=== PATIENT | female | born 1975 | race Caucasian/White ===

== ENCOUNTER 2024-12-22 17:38 | Inpatient (IN) | payer MEDICARE, SELFPAY ==
--- NOTE | ~2024-12-22 | CT_ITS ---
EXAMINATION: CT CHEST WITHOUT IV CONTRAST INDICATION: Pneumonia COMPARISON: Correlation is made with PA and lateral views of the chest dated 12/25/2024. TECHNIQUE: Helical CT scan of the chest was performed without intravenous contrast. Coronal and sagittal reformatted images were generated and reviewed. This CT exam was performed with one or more of the following dose reduction techniques: automated exposure control, adjustment of the mA and/or kV according to patient size, use of iterative reconstruction technique. DLP: 211 mGy-cm CHEST: THYROID: The thyroid is unremarkable. LUNGS: There is a small airspace opacity in the lingula compatible with subsegmental atelectasis or possibly early pneumonia. MEDIASTINUM: There is diffuse mediastinal lymphadenopathy. Superior mediastinal lymph nodes measure up to 1.4 cm. Paratracheal nodes measure up to 2.0 cm. AP window lymph nodes measure up to 2.5 cm. There is a 2.4 cm subcarinal lymph node. RUCHI: There is enlargement and a lobulated contour of both hilar regions, highly suggestive of lymphadenopathy. Evaluation is limited by lack of intravenous contrast material. CARDIOVASCULATURE: The heart is normal in size. There is no pericardial effusion. The thoracic aorta is normal in caliber. DEGREE OF CORONARY CALCIFICATION: none PLEURA: There is no pleural effusion. No pneumothorax. MAIN AIRWAYS: The mainstem bronchi and proximal branches are patent. AXILLA: There is no axillary lymphadenopathy. BONES AND SOFT TISSUES: Unremarkable UPPER ABDOMEN: The visualized portions of the liver and adrenals have an unremarkable unenhanced appearance. The spleen is enlarged. CT/CT chest wo IV con IMPRESSION: 1. Airspace opacity in the lingula compatible with subsegmental atelectasis or possibly early pneumonia. 2. Mediastinal and bilateral hilar lymphadenopathy as described. Splenomegaly. Differential diagnostic considerations include lymphoma, sarcoidosis, metastatic disease, and atypical infection. Clinical correlation is recommended. Electronically signed by: Osvaldo Akhtar MD 12/27/2024 07:51 AM EDT
--- NOTE | ~2024-12-22 | XR_ITS ---
EXAMINATION: XR CHEST CLINICAL INFORMATION: Shortness of breath COMPARISON: None available. TECHNIQUE: 2 views of the chest were obtained. FINDINGS: The cardiac, hilar, and mediastinal contours are normal. Lungs demonstrate a patchy opacity abutting the left heart border in the region of the lingula, best appreciated on the PA projection. Lungs are otherwise clear. There is no pneumothorax or pleural effusion. There is no focal osseous or soft tissue abnormality. XR/XR chest 2V IMPRESSION: Patchy opacity in the lingula suspicious for pneumonia. Electronically signed by: Caleb Chapman MD 12/25/2024 01:17 PM EDT
--- NOTE | 2024-12-22 17:45 | ED_ITS ---
HPI - General Adult General Chief complaint: Psychiatric Symptoms Stated complaint: Crisis Time Seen by Provider: 12/22/24 18:43 History of Present Illness HPI narrative: Patient is 49 years old history of crack cocaine use. Last use of a few hours ago. Has been on an off psych meds for years. Feel generally hopeless but not suicidal not homicidal. Came to the ED. Related Data Home Medications ?Medication ?Instructions ?Recorded ?Confirmed No Known Home Meds 12/22/24 12/22/24 Allergies Allergy/AdvReac Type Severity Reaction Status Date / Time No Known Allergies Allergy Verified 12/22/24 17:49 Review of Systems 2 Review of Systems: No chest pain or shortness breath no diaphoresis Yes all other systems are reviewed and are negative [facility] Past Medical History Attestation statement: The following information was validated with the patient. Social History Social History Advance Directives: No Advance Directives Information Provided: No Patient : No Physical Exam ED Exam Exam: Appearance: Alert. Oriented X3. No acute distress. Eyes: Pupils equal, round and reactive to light. ENT: Pharynx normal. Neck: Normal inspection. Neck supple. No lymph nodes noted. No crepitus CVS: Normal heart rate and rhythm. Pulses normal. Normal S1 and S2 Respiratory: No respiratory distress. Breath sounds normal. No Wheezing. No rales Abdomen: Soft and nontender. No rigidity. No distention. good BS x4 Skin: Skin warm and dry. Normal skin color. Normal skin turgor. Extremities: No lower extremity edema. Neurovascular intact to all extremities. No Lacerations. No Rash Neuro: Oriented X 3. No motor deficit. No sensory deficit. Moving all extermities. No slurred speech. Cranial nerves intact Vital Signs: Vital Signs - 24 hr 12/22/24 17:46 Temperature 98.3 F Pulse Rate 117 H Respiratory Rate 20 Blood Pressure 138/93 H Pulse Oximetry 96 Oxygen Delivery Method Room Air BMI result Body Mass Index 24.9 Course Course Course Narrative: RME, this is a rapid medical exam performed by [facility] please refer to primary provider for complete H&P- 49 year old female presents for evaluation of depression with passive SI. She reports being off of her meds. Plan for medical clearance and care team consult Medical Decision Making Medical Decision Making MDM Narrative: 49 years old positive history of crack cocaine use. No SI no HI. Feels very hopeless. Care team had chance evaluate patient. Recommended rest bed. Patient comfortable with that. Currently not suicidal. Will seek help if she had still starts. Patient case consulted by care team. Care team actually spoke with the daughter. When patient is not getting her recreational drugs she becomes more suicidal. Had suicidal tendencies. Does not feel safe that patient is in a rest bed. Patient's case discussed with her. Care team re-evaluate the situation. Will admit patient for inpatient level of care Differential Diagnosis Differential Diagnoses: The differential diagnosis associated with the presentation includes Depression anxiety, polysubstance abuse Admission/Observation Consideration of admission/observation: Escalation of care including admission/observation considered Lab Data [facility] Lab Attestation statement: I reviewed the patient's lab results. 12/22/24 18:33 12/22/24 18:33 Labs: Lab Results 12/22/24 Range/Units 18:33 WBC 6.2 (4.8-10.8) X10*3/uL RBC 4.66 (4.20-5.50) X10*6/uL Hgb 13.8 (12.0-16.0) g/dl Hct 40.1 (37.0-47.0) % MCV 86.1 (80.0-98.0) fL MCH 29.6 (27.0-33.0) pg MCHC 34.4 (31.0-35.0) g/dl RDW 13.6 (11.0-16.0) % Plt Count 285 (160-400) X10*3/uL MPV 10.2 (9.4-12.3) fL Immature Gran % (Auto) 0.5 H (0.0-0.4) % Neut % (Auto) 70.4 (45-73) % Lymph % (Auto) 19.0 L (20-40) % Daggett % (Auto) 8.5 (2-11) % Eos % (Auto) 1.0 (0-4) % Baso % (Auto) 0.6 (0-2) % Lymph # (Auto) 1.2 (1.2-4.9) X10*3/uL Daggett # (Auto) 0.5 (0.1-1.2) X10*3/uL Eos # (Auto) 0.1 (0.0-0.4) X10*3/uL Baso # (Auto) 0.0 (0.0-0.2) X10*3/uL Abs Immat Gran (auto) 0.03 (0.00-0.03) X10*3/uL Absolute Neuts (auto) 4.4 (2.0-8.3) x10*3/uL Absolute Nucleated RBC 0.000 (0.0-0.012) X10*3/uL Nucleated RBC % (auto) 0.0 (0.0-0.2) /100WBC Sodium 143 (135-145) mmol/L Potassium 3.9 (3.3-5.1) mmol/L Chloride 108 (96-108) mmol/L Carbon Dioxide 27 (22-29) mmol/L Anion Gap 12 (12-20) BUN 18 H (9-16) mg/dL Creatinine 0.94 (0.5-1.4) mg/dL Estim Creat Clear Calc 69.2 Estimated GFR > 60 Random Glucose 89 (60-115) mg/dL Calcium 9.8 (8.4-10.2) mg/dL Total Bilirubin 0.3 (0.0-1.0) mg/dL AST 49 H (5-31) U/L ALT 74 H (0-31) U/L Alkaline Phosphatase 88 (39-117) U/L Total Protein 7.8 (6.5-8.0) g/dL Albumin 4.5 (3.5-5.0) g/dL Salicylates < 5.0 L (15-30) mg/dL Acetaminophen < 3 (<30) mcg/mL Ethyl Alcohol < 10 mg/dL Chronic Conditions Polysubstance abuse Social Determinants Patient?s care significantly limited by Social Determinants of Health including: Alcoholism and drug addiction in family, Problems related to primary support group and Unemployment Discharge Plan Discharge Clinical Impression: Depression, Cocaine abuse Instructions: Cocaine Use Disorder (ED), Depression (ED) Additional Instructions: Please go to respite as per care team Prescriptions: No Action No Known Home Meds Interventions: Payette-Suicide Risk Severity Scale Last Done: 12/22/24 18:18 Print Language: Yoruba
[2024-12-22 17:46] VITALS: BP 138/93; PULSE 117; RESP 20; TEMP 36.8; O2SAT 96; BMI 24.9
[2024-12-22 18:53] LABS: MANUAL DIFF FLAG NO
[2024-12-22 19:02] LABS: Hematocrit 40.1 % (37.0-47.0); Hemoglobin 13.8 g/dl (12.0-16.0); Imm Gran Abs Auto 0.03 X10*3/uL (0.00-0.03); Imm Gran Pct Auto 0.5 % (0.0-0.4); Lymphocytes Absolute Auto 1.2 X10*3/uL (1.2-4.9); Mean Corpuscular HGB Conc 34.4 g/dl (31.0-35.0); Mean Corpuscular Hemoglobin 29.6 pg (27.0-33.0); Mean Corpuscular Volume 86.1 fL (80.0-98.0); NRBC Abs Auto 0.000 X10*3/uL (0.0-0.012); NRBC Pct Auto 0.0 /100WBC (0.0-0.2); Platelet Count 285 X10*3/uL (160-400); Red Blood Count 4.66 X10*6/uL (4.20-5.50); White Blood Count 6.2 X10*3/uL (4.8-10.8)
[2024-12-22 19:19] LABS: Acetaminophen LAB < 3 mcg/mL (<30); Alanine Aminotransferase 74 U/L (0-31); Albumin Level 4.5 g/dL (3.5-5.0); Alkaline Phosphatase 88 U/L (39-117); Anion Gap 12 (12-20); Aspartate Amino Transferase 49 U/L (5-31); Blood Urea Nitrogen 18 mg/dL (9-16); Calcium 9.8 mg/dL (8.4-10.2); Carbon Dioxide 27 mmol/L (22-29); Chloride 108 mmol/L (96-108); Creatinine Clr Calc Pharmacy 69.2; Estimated Glomerular Filt Rate > 60; Potassium 3.9 mmol/L (3.3-5.1); Salicylate < 5.0 mg/dL (15-30); Sodium 143 mmol/L (135-145); Total Protein 7.8 g/dL (6.5-8.0)
--- NOTE | 2024-12-22 20:14 | PC.NURSE ---
ASSUMED CARE FOR PT AT APPROXIMATELY 1845. PT HAS BEEN LAYING IN BED SINCE RN ARRIVED. NO APPARENT DISTRESS. NO CONCERNS AT THIS TIME. AWAITING CARE TEAM DISPO.
[2024-12-23 04:13] LABS: UPreg QC Valid YES
[2024-12-23 04:14] LABS: Appearance Urine Clear; Glucose Urine UA Negative (Negative); PH 6.0 (5.0-9.0); Specific Gravity - Urine 1.025 (1.005-1.025); UMIC TRIGGER UACC YES
[2024-12-23 04:16] LABS: UACC Culture Trigger YES
[2024-12-23 04:51] LABS: Cannabinoid Screen Urine Not Detected (Not Detect)
[2024-12-23 06:00] VITALS: BP 131/90; PULSE 102; RESP 20; TEMP 36.9; O2SAT 97
--- NOTE | 2024-12-23 06:06 | PC.NURSE ---
took over at 23:00, pt sleeping at this time.
--- NOTE | 2024-12-23 07:28 | PC.NURSE ---
Assumed care, report received. Pt is currently sleeping, safety is maintained and her breakfast is dropped off in her room.
--- NOTE | 2024-12-23 11:41 | PHA.MEDREC ---
Pharmacy Consult ? Medication Reconciliation Pharmacy has reviewed the medication reconciliation completed by nursing.
--- NOTE | 2024-12-23 14:02 | PC.NURSE ---
Pt remains isolaitive and sleeps most of the shift. she reprots high anxiety after lunch and is provided Ativan with good effect.
[2024-12-23 15:30] VITALS: BP 116/72; PULSE 82; RESP 20; TEMP 37; O2SAT 97
[2024-12-23 20:05] VITALS: BP 112/81; PULSE 88; RESP 16; TEMP 36.8; O2SAT 95
[2024-12-24 06:33] VITALS: RESP 16
--- NOTE | 2024-12-24 07:22 | PC.NURSE ---
Assumed care, report received. Pt wakes for breakfast. she is calm and cooperative. safety maintaiend
[2024-12-24 07:57] VITALS: BP 104/67; PULSE 74; RESP 16; TEMP 36.1; O2SAT 94
--- NOTE | 2024-12-24 09:53 | ECG_ITS ---
Test Reason : R/O PROLONGED QT Blood Pressure : */* mmHG Vent. Rate : 102 BPM Atrial Rate : 102 BPM P-R Int : 120 ms QRS Dur : 72 ms QT Int : 356 ms P-R-T Axes : 76 20 70 degrees QTcB Int : 463 ms Sinus tachycardia Otherwise normal ECG No previous ECGs available Referred By: Jaime Garcia Electronically Signed By: Guerrero Amaral
[2024-12-24 13:04] VITALS: BMI 25.0
[2024-12-24 13:12] VITALS: BP 102/66; PULSE 107; RESP 22; TEMP 36.2; O2SAT 97
[2024-12-24] MEDS: Nicotine 14 MG PATCH.TD24 TRANSDERMA (13:31)
--- NOTE | 2024-12-24 15:28 | PC.ADMIT ---
Addendum entered by Marleen Starkey RN 12/24/24 15:48: Eva is being treated with an antibiotic for a UTI. Original Note: Eva is a 49yr old female admitted (at approx 13:10) to on a CV for increasing depression & vague SI. Brought to [facility] by her daughter, seeking care for her mental health & addiction. She is not on any psych medications & admits to using daily crack cocaine to ?self medicate?. Eva isn?t known to [facility]. She reports having a history of PTSD, Bipolar, manic episodes & denies medical history. Eva is A&Ox4, anxious & tearful, but cooperative, during the admission process. Eva endorses high anxiety & depression but denies current SI/HI/AVH. Eva is from [place] but is now homeless. She came to this area to be near her daughter, stating that she is only able to stay at her daughter?s only short term. Her daughter reported that when Eva is sober or can?t get crack cocaine, she struggles with suicidality. Her skin check is unremarkable. Eva was oriented to the unit & placed on 15min safety checks. She is very anxious, stating that the 2mg PO lorazepam q4hrs she got in the POD isn?t helping.? Eva was shown to her room & has been resting quietly in her bed for approximately two hours.? Will continue to monitor & administer PRN's as appropriate.
[2024-12-24 19:39] VITALS: BP 109/75; PULSE 99; RESP 16; TEMP 36.9; O2SAT 98
[2024-12-25 08:00] VITALS: BP 118/80; PULSE 81; RESP 18; TEMP 35.9; O2SAT 100
[2024-12-25 08:19] LABS: Hemoglobin A1C 151.2540 umol/L; Total Hemoglobin (HGBA1C) 3655.0597 umol/L
--- NOTE | 2024-12-25 08:23 | P.CONHOSP_ITS ---
History of Present Illness Data of Consult Service Date: 12/25/24 Primary Care Provider: None Physician HPI Reason for consult: Medical management 49 year old female with PMH of Cocaine/Crack use, depression presented to ED with passive SI and hopelessness. CBC without leukocytosis, anemia. CMP with no electrolyte imbalances, mild elevation in AST/ALT. No evidence of renal injury. HgA1c 5.9. Patient UA+ was started on Ceftin. No home meds, No PMH. Patient reports a history of an an known thyroid problem as well as an unknown heart or lung problem which was noted approximately 2 years ago in [place], she does not know any details of this. Has not seen a PCP, will need PCP follow up on discharge. TSH WNL. No palpable masses in thyroid, no difficulty swallowing or voice changes. Review of Systems 2 Review of Systems: Denies any shortness of breath, chest pain, dizziness, lightheadedness, abdominal pain or discomfort, nausea vomiting or diarrhea. Denies dysuria PMFSH Social History Household Members: Other Housing: Homeless Housing Other:: can stay w/ daughter short-term Do you presently have visiting nurse or other home services: No Patient Tobacco Use Status: Former Tobacco user e-Cigarette/Vaping Use: Currently Using Frequency of e-Cigarette/Vaping Use: Vapes nicotine daily Patient Interested in Nicotine Replacement: Yes Patient Given Instructions on How to Stop Smoking: No Second Hand Smoke Exposure: No Currently Displaying Signs/Symptoms of Drug Intoxication Withdrawal: No Have you been hit, kicked, punched, or otherwise hurt by someone within the past year? If so, by whom?: No Do you feel safe in your current relationship?: No Current Relationship Is there a partner from a previous relationship who is making you feel unsafe now?: No Are you made to feel afraid or neglected: No Advance Directives: No Advance Directives Information Provided: No Do you have thoughts of harming others: None Do you have a plan to hurt others: No Plan Recently lost weight without trying: No Eating poorly because of decreased appetite: No Nutrition Risks: No Nutritional Risk Patient : No : No Poor oral hygiene: No Meds Allergies Allergy/AdvReac Type Severity Reaction Status Date / Time No Known Allergies Allergy Verified 12/22/24 17:49 Active Medications: Current Medications Acetaminophen (Acetaminophen 325 Mg Tablet) 650 mg PO Q6H PRN PRN Reason: Headache/Pain, Scale 1-10 Al Hydroxide/Mg Hydroxide (Magnesium Hydrox/Alum Hydrox 30 Ml Oral.Susp) 30 ml PO Q6H PRN PRN Reason: Heartburn/Nausea Cefuroxime Axetil (Cefuroxime Axetil 250 Mg Tablet) 250 mg PO BID [facility] Stop: 12/28/24 08:59 Last Admin: 12/24/24 20:33 Dose: 250 mg Hydroxyzine HCl (Hydroxyzine Hcl 25 Mg Tablet) 25 mg PO Q6H PRN PRN Reason: mild anxiety Last Admin: 12/24/24 13:31 Dose: 25 mg Lorazepam (Lorazepam 1 Mg Tablet) 2 mg PO Q4H PRN PRN Reason: Anxiety, agitation Last Admin: 12/24/24 20:33 Dose: 2 mg Magnesium Hydroxide (Milk Of Magnesia 30 Ml Oral.Susp) 30 ml PO DAILY PRN PRN Reason: Constipation Nicotine (Nicotine 14 Mg Patch.Td24) 14 mg TRANSDERMA DAILY [facility] Last Admin: 12/24/24 13:31 Dose: 14 mg Nicotine Polacrilex (Nicotine Polacrilex 2 Mg Gum) 2 mg BUCCAL Q2H PRN PRN Reason: Nicotine Cravings Trazodone HCl (Trazodone Hcl 50 Mg Tablet) 50 mg PO BEDTIME MRX1 PRN PRN Reason: Insomnia Home Medications ?Medication ?Instructions ?Recorded ?Confirmed ?Last Taken ?Type No Known Home Meds 12/22/24 12/22/24 Un known History Physical Exam 2 Vital Signs and Narrative: Vital Signs: Last Vital Signs Temp 96.6 F L 12/25/24 08:00 Pulse 81 12/25/24 08:00 Resp 18 12/25/24 08:00 BP 118/80 12/25/24 08:00 Pulse Ox 100 12/25/24 08:00 O2 Del Method Room Air 12/25/24 08:00 BMI result Body Mass Index 25.0 CONST: Alert and oriented, in NAD. Well nourished HEENT: Normocephalic, atraumatic, MMM, Eyes clear, Neck supple, no palpable masses RESP: Lungs clear, RRR even and regular HEART:,RRR, S1, S2. No edema GI:Abdomen Soft NT, ND. + BS times four :Deferred SKIN: Warm dry and intact, no visible lesions or rashes NEURO:CN II-XII Intact bilaterally, Sensation intact. Speech clear PSYCH: Normal affect Results Labs 12/22/24 18:33 12/25/24 07:28 Labs: Laboratory Results - last 24 hr 12/25/24 07:28 Estimat Average Glucose 123 Hemoglobin A1c % 5.9 Assessment and Plan (1) Cocaine abuse: Status: Acute Plan 49 year old female with PMH of crack cocaine use, PTSD, Bipolar DO and depression presented to ED with Passive SI and help with abstaining from crack cocaine use. She is admitted to inpatient psych for stabilization. Substance use/depression/suicide ideation Treatment per psychiatric team Patient will need follow up as an outpatient for chronic health conditions Thank you for allowing me to participate in the care of this patient. Will follow as needed, please notify medical provider with any changes in condition or concerns.
[2024-12-25] MEDS: Nicotine 14 MG PATCH.TD24 TRANSDERMA (08:27)
[2024-12-25 08:36] LABS: Alanine Aminotransferase 76 U/L (0-31); Albumin Level 4.3 g/dL (3.5-5.0); Alkaline Phosphatase 86 U/L (39-117); Anion Gap 12 (12-20); Aspartate Amino Transferase 46 U/L (5-31); Blood Urea Nitrogen 23 mg/dL (9-16); Calcium 9.7 mg/dL (8.4-10.2); Carbon Dioxide 25 mmol/L (22-29); Chloride 107 mmol/L (96-108); Cholesterol 199 mg/dL (<200); Creatinine Clr Calc Pharmacy 93.0; Estimated Glomerular Filt Rate > 60; HDL Cholesterol 53 mg/dL (>40); Potassium 4.4 mmol/L (3.3-5.1); Sodium 140 mmol/L (135-145); Total Protein 7.5 g/dL (6.5-8.0); Triglycerides 111 mg/dL (<150)
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
[2024-12-25 11:25] VITALS: BP 105/70
[2024-12-25 16:42] VITALS: BP 109/64
[2024-12-25 20:30] VITALS: BP 134/82; PULSE 75; RESP 16; TEMP 36.3; O2SAT 98
[2024-12-25 21:00] VITALS: BP 134/82
[2024-12-26 08:00] VITALS: BP 99/57; PULSE 78; RESP 18; TEMP 36.8; O2SAT 96
[2024-12-26] MEDS: Nicotine 14 MG PATCH.TD24 TRANSDERMA (08:30)
--- NOTE | 2024-12-26 13:01 | HO.PM.IMPN ---
Subjective Subjective Date of Service: 12/26/24 Interval History: Patient was seen and examined follow up chest x-ray. Patient reports that she had a nonspecific lung problem and was supposed to follow up with a pulmonology over a year ago in [place]. She reports that she never followed up. Recent chest x-ray demonstrated patchy opacity the left heart border in the region of the lingula with no pneumothorax or pleural effusion. Possibly suspicious for pneumonia. We will obtain a CT scan due to unclear etiology. Treat empirically with antibiotic therapy, follow up with a repeat chest x-ray in 6 weeks. Review of Systems Denies any shortness of breath, chest pain, dizziness, lightheadedness, abdominal pain or discomfort, nausea vomiting or diarrhea Physical Exam Exam: Exam: CONST: Alert and oriented, in NAD. Well nourished HEENT: Normocephalic, atraumatic, MMM, Eyes clear, Neck supple RESP: Lungs clear, RRR even and regular HEART:,RRR, S1, S2. No murmur, no edema GI:Abdomen Soft NT, ND. + BS times four :Deferred SKIN: Warm dry and intact, no visible lesions or rashes NEURO:CN II-XII Intact bilaterally, Sensation intact. Speech clear PSYCH: Normal affect Vital Signs: Vital Signs: Last Vital Signs Temp 98.2 F 12/26/24 08:00 Pulse 78 12/26/24 08:00 Resp 18 12/26/24 08:00 BP 99/57 L 12/26/24 08:00 Pulse Ox 96 12/26/24 08:00 O2 Del Method Room Air 12/26/24 08:00 BMI result Body Mass Index 25.0 Objective Data Active Medications Acetaminophen (Acetaminophen 325 Mg Tablet) 650 mg PO Q6H PRN PRN Reason: Headache/Pain, Scale 1-10 Al Hydroxide/Mg Hydroxide (Magnesium Hydrox/Alum Hydrox 30 Ml Oral.Susp) 30 ml PO Q6H PRN PRN Reason: Heartburn/Nausea Cefuroxime Axetil (Cefuroxime Axetil 250 Mg Tablet) 250 mg PO BID ROSEMARIE Stop: 12/28/24 08:59 Last Admin: 12/26/24 08:30 Dose: 250 mg Documented By: CLAUDETTE Clonidine HCl (Clonidine Hcl 0.1 Mg Tablet) 0.1 mg PO TID PRN; Protocol PRN Reason: anxiety/W/D symtoms Last Admin: 12/25/24 11:25 Dose: 0.1 mg Documented By: CLAUDETTE Clonidine HCl (Clonidine Hcl 0.1 Mg Tablet) 0.1 mg PO DAILY@0900,1500 [facility]; Protocol Last Admin: 12/26/24 08:38 Dose: Not Given Documented By: CLAUDETTE Non-Admin Reason: Decreased Blood Pressure Hydroxyzine HCl (Hydroxyzine Hcl 50 Mg Tablet) 50 mg PO Q6H PRN PRN Reason: mild anxiety Last Admin: 12/26/24 10:39 Dose: 50 mg Documented By: CLAUDETTE [place] Carbonate ([place] Carbonate Er 300 Mg Tablet.Er) 600 mg PO BEDTIME ROSEMARIE Last Admin: 12/25/24 21:01 Dose: 600 mg Documented By: ROMANA Lorazepam (Lorazepam 1 Mg Tablet) 2 mg PO Q4H PRN PRN Reason: Anxiety, agitation Last Admin: 12/25/24 08:27 Dose: 2 mg Documented By: CLAUDETTE Magnesium Hydroxide (Milk Of Magnesia 30 Ml Oral.Susp) 30 ml PO DAILY PRN PRN Reason: Constipation Nicotine (Nicotine 14 Mg Patch.Td24) 14 mg TRANSDERMA DAILY [facility] Last Admin: 12/26/24 08:30 Dose: 14 mg Documented By: CLAUDETTE Nicotine Polacrilex (Nicotine Polacrilex 2 Mg Gum) 2 mg BUCCAL Q2H PRN PRN Reason: Nicotine Cravings Olanzapine (Olanzapine 5 Mg Tablet) 5 mg PO Q4H PRN PRN Reason: severe anxiety/agitation Last Admin: 12/26/24 08:37 Dose: 5 mg Documented By: CLAUDETTE Prazosin HCl (Prazosin Hcl 1 Mg Capsule) 1 mg PO BEDTIME ROSEMARIE; Protocol Last Admin: 12/25/24 21:00 Dose: 1 mg Documented By: ROMANA Trazodone HCl (Trazodone Hcl 50 Mg Tablet) 50 mg PO BEDTIME PRN PRN Reason: Insomnia Trazodone HCl (Trazodone Hcl 50 Mg Tablet) 50 mg PO BEDTIME ROSEMARIE Last Admin: 12/25/24 21:01 Dose: 50 mg Documented By: ROMANA Labs 12/22/24 18:33 12/25/24 07:28 Labs: Laboratory Results - last 24 hr 12/25/24 07:28 TSH 0.97 Microbiology Microbiology Results: Microbiology 12/23/24 Unknown Urine Culture - Final Urine clean catch - Clean Catch Midstream Klebsiella pneumoniae Escherichia coli Assessment and Plan (1) PNA (pneumonia): Status: Acute Plan 49 year old female with PMH of crack cocaine use, PTSD, Bipolar DO and depression presented to ED with Passive SI and help with abstaining from crack cocaine use. She is admitted to inpatient psych for stabilization. Substance use/depression/suicide ideation Treatment per psychiatric team Patient will need follow up as an outpatient for chronic health conditions PNA Patient with a chest x-ray with patchy opacity in the lingula suspicious for pneumonia, she reported a history of a lung issue which she needed follow up 1-1/2 years ago We will obtain a CT without contrast for further evaluation Treat empirically with antibiotics, we will add doxy as patient is already on a cephalosporin. Repeat Chest Xray in 6 weeks Will need outpatient pulmonology FU. Thank you for allowing me to participate in the care of this patient. Will follow as needed, please notify medical provider with any changes in condition or concerns. Quality Stroke Does the patient have a stroke diagnosis?: No VTE Prior VTE?: No VTE Risk Level:: Medical - low VTE Device Contraindication: Treatment Not Indicated VTE Drug Contraindication: Treatment Not Indicated
[2024-12-26 14:35] VITALS: BP 101/57; PULSE 95; O2SAT 97
--- NOTE | 2024-12-26 14:42 | HO.PSYCHPN ---
Subjective Subjective Date of Service: 12/26/24 Reason For Visit: vague si depression Subjective Notes: Conditional Voluntary Healthcare Proxy: No Guardianship: No Medical Problems Affecting Mental Status: No Interim History: Met with pt and Juana Arboleda LCSW. Pt has made a change of plans and does not want a referral to [facility], but prefers PHP/IOP. Plans to live with her daughter locally. Insurance issues discussed with pt. Family reports pt has several court dates upcoming. Review of medical issues with pt. Hospitalist team working with her-2 antibiotics currently for pneumonia, and two bacterial strains of UTI. Will have chest CAT this afternoon as pt reports hx of nodules found in eval [place] in [place]23 and cardiac issues found as well in [place] in 2023. Pt agrees to addiction medicine eval-looking at options for cravings. Also reports sleep issues. will trial Seroquel for sleep/anxiety sx. Discussed with pt why we will want to avoid lorazepam Medication Compliance: Yes Side effects from medications: No Attending Groups: No Review of Systems as noted Medical Review of Systems: unchanged Review of Systems Review of Systems UTI, Pneumonia Mental Status Exam Mental Status Exam Patient Appearance: Fatigued Patient Orientation: Person, Place, Time and Situation Level of Consciousness: Alert Patient Behavior: Passive and Good Eye Contact Mood Description: Withdrawn Affect Description: Withdrawn Patient Cognition Impaired: No Ability to Follow Directions: Fair Speech Pattern: Spontaneous Speech and Soft-Spoken Memory Description: Episodic Impaired Hallucinations: None Delusions: Not Present Perceptual Disturbances: Depersonalization and Derealization Thought Process: Distracted Thought Content: positive for Circumstantial, positive for Perseveration and positive for Suicidal Ideation (denies) Depressive Symptoms: Increased Anxiety and Thoughts of /Suicide (denies) Judgement: Fair Diagnostics Vital Signs (24Hr): Vital Signs - 24 hr 12/25/24 16:42 12/25/24 20:30 12/25/24 21:00 Temperature 97.3 F Pulse Rate 75 Respiratory Rate 16 Blood Pressure 109/64 134/82 134/82 Pulse Oximetry 98 Oxygen Delivery Method Room Air 12/26/24 08:00 12/26/24 14:35 Temperature 98.2 F Pulse Rate 78 95 Respiratory Rate 18 Blood Pressure 99/57 L 101/57 L Pulse Oximetry 96 97 Oxygen Delivery Method Room Air Room Air BMI result Body Mass Index 25.0 Labs 12/22/24 18:33 12/25/24 07:28 Labs: Laboratory Results - last 48 hr 12/25/24 07:28 Sodium 140 Potassium 4.4 Chloride 107 Carbon Dioxide 25 Anion Gap 12 BUN 23 H Creatinine 0.70 Estim Creat Clear Calc 93.0 Estimated GFR > 60 Random Glucose 96 Estimat Average Glucose 123 Hemoglobin A1c % 5.9 Calcium 9.7 Total Bilirubin 0.3 AST 46 H ALT 76 H Alkaline Phosphatase 86 Total Protein 7.5 Albumin 4.3 Triglycerides 111 Cholesterol 199 LDL Cholesterol, Calc 124 H HDL Cholesterol 53 TSH 0.97 Imaging Radiology Impressions: ITS Impressions Chest X-Ray 12/25/24 12:55 IMPRESSION: Patchy opacity in the lingula suspicious for pneumonia. Electronically signed by: Caleb Chapman MD 12/25/2024 01:17 PM EDT RP Medications Medications Current Medications Acetaminophen (Acetaminophen 325 Mg Tablet) 650 mg PO Q6H PRN PRN Reason: Headache/Pain, Scale 1-10 Al Hydroxide/Mg Hydroxide (Magnesium Hydrox/Alum Hydrox 30 Ml Oral.Susp) 30 ml PO Q6H PRN PRN Reason: Heartburn/Nausea Cefuroxime Axetil (Cefuroxime Axetil 250 Mg Tablet) 250 mg PO BID [facility] Stop: 12/28/24 08:59 Last Admin: 12/26/24 08:30 Dose: 250 mg Clonidine HCl (Clonidine Hcl 0.1 Mg Tablet) 0.1 mg PO TID PRN; Protocol PRN Reason: anxiety/W/D symtoms Last Admin: 12/25/24 11:25 Dose: 0.1 mg Clonidine HCl (Clonidine Hcl 0.1 Mg Tablet) 0.1 mg PO DAILY@0900,1500 [facility]; Protocol Last Admin: 12/26/24 08:38 Dose: Not Given Doxycycline Monohydrate (Doxycycline Monohydrate 100 Mg Capsule) 100 mg PO Q12H [facility] Stop: 12/31/24 12:59 Last Admin: 12/26/24 13:33 Dose: 100 mg Hydroxyzine HCl (Hydroxyzine Hcl 50 Mg Tablet) 50 mg PO Q6H PRN PRN Reason: mild anxiety Last Admin: 12/26/24 10:39 Dose: 50 mg [place] Carbonate ([place] Carbonate Er 300 Mg Tablet.Er) 600 mg PO BEDTIME [facility] Last Admin: 12/25/24 21:01 Dose: 600 mg Lorazepam (Lorazepam 1 Mg Tablet) 2 mg PO Q4H PRN PRN Reason: Anxiety, agitation Last Admin: 12/26/24 13:36 Dose: 2 mg Magnesium Hydroxide (Milk Of Magnesia 30 Ml Oral.Susp) 30 ml PO DAILY PRN PRN Reason: Constipation Nicotine (Nicotine 14 Mg Patch.Td24) 14 mg TRANSDERMA DAILY [facility] Last Admin: 12/26/24 08:30 Dose: 14 mg Nicotine Polacrilex (Nicotine Polacrilex 2 Mg Gum) 2 mg BUCCAL Q2H PRN PRN Reason: Nicotine Cravings Olanzapine (Olanzapine 5 Mg Tablet) 5 mg PO Q4H PRN PRN Reason: severe anxiety/agitation Last Admin: 12/26/24 08:37 Dose: 5 mg Prazosin HCl (Prazosin Hcl 1 Mg Capsule) 1 mg PO BEDTIME [facility]; Protocol Last Admin: 12/25/24 21:00 Dose: 1 mg Trazodone HCl (Trazodone Hcl 50 Mg Tablet) 50 mg PO BEDTIME PRN PRN Reason: Insomnia Trazodone HCl (Trazodone Hcl 50 Mg Tablet) 50 mg PO BEDTIME [facility] Last Admin: 12/25/24 21:01 Dose: 50 mg Allergies Allergies Allergy/AdvReac Type Severity Reaction Status Date / Time No Known Allergies Allergy Verified 12/22/24 17:49 Assessment & Plan Assessment & Plan (1) PNA (pneumonia): Status: Acute Code(s): J18.9 - Pneumonia, unspecified organism (2) Bipolar II disorder: Status: Acute Code(s): F31.81 - Bipolar II disorder (3) PTSD (post-traumatic stress disorder): Status: Acute Code(s): F43.10 - Post-traumatic stress disorder, unspecified (4) Cocaine abuse: Status: Acute Code(s): F14.10 - Cocaine abuse, uncomplicated Plan 49 year old female with PMH of crack cocaine use, PTSD, Bipolar DO and depression presented to ED with Passive SI and help with abstaining from crack cocaine use. She is admitted to inpatient psych for stabilization. Substance use/depression/suicide ideation Treatment per psychiatric team Patient will need follow up as an outpatient for chronic health conditions PNA Patient with a chest x-ray with patchy opacity in the lingula suspicious for pneumonia, she reported a history of a lung issue which she needed follow up 1-1/2 years ago We will obtain a CT without contrast for further evaluation Treat empirically with antibiotics, we will add doxy as patient is already on a cephalosporin. Repeat Chest Xray in 6 weeks Will need outpatient pulmonology FU. Thank you for allowing me to participate in the care of this patient. Will follow as needed, please notify medical provider with any changes in condition or concerns. 12/26: Addiction medicine consult Seroquel 50 mg HS prn sleep/anxiety and 25 mg prn for anxiety Discharge planning- pt considering PHP/IOP vs [facility] Reason for continued inpatient stay Substantial Risk for: rapid decompensation and med/psych decompensation Time Spent With Patient Time: Total time managing care of this patient today ____ minutes.
[2024-12-26 20:00] VITALS: BP 91/54; PULSE 95; RESP 16; TEMP 36.3; O2SAT 96
[2024-12-27 08:14] VITALS: BP 95/51; PULSE 78; TEMP 36.3; O2SAT 96
[2024-12-27] MEDS: Nicotine 14 MG PATCH.TD24 TRANSDERMA (09:37)
[2024-12-27 15:13] VITALS: BP 100/60
--- NOTE | 2024-12-27 15:51 | MHC.RECOVRN ---
TW met with pt in to offer support, resources, and education after consult was placed to Addiction Medicine for? stimulant use. On approach pt was laying in bed with eyes closed. She awoke to name being called and was agreeable to meeting with this aligner typewriter.? Pt reports feeling ?tired? and ?a little irritable?. She is quiet, soft spoken and slightly guarded during interview.? Pt reports smoking approximately 7 grams of crack cocaine daily for the? past 2 years and states that when she is not using, experiences ?panic attacks, I can;t stand myself? and states she has no defence against cravings for crack cocaine.? Pt states her friend ?was given meds for coke and it made her stop craving it? and voiced interest in beginning medication if possible. Case was discussed w/ Suad Resendiz NP and patient was initiated on Topamax 25mg BID.? Pt reports she has been to detox ?about as year ago? at [facility] but denies she has remained abstinent. ?I can do it for maybe a week but then I just give in. I?m super anxious if I don?t smoke?? Pt states the only time she is not using crack cocaine is if she is sleeping.? Pt denies other treatment for stimulant use, and reports she does not have a therapist, psych provider or other recovery support other than her 30 year old daughter with whom she resides with.? Pt shared that she has an extensive family history of mental health and? substance use disorders? on both her maternal and paternal sides. Discussed how substance use has impacted health, including negative impact on mental health and overall physical well being.? Discussed and provided printed education and resources regarding risk and reduction strategies including drug testing at [facility], the importance of proper nutrition and hydration, oral care, not sharing mouth pieces, and using substances with trusted individuals. Pt agreed to start medication to help manage stimulant use cravings and has been initiated on topiramate 25mg PO BID. Pt is also agreeable to a pitching coach and START program referral however, documentation shows she is connected with a pitching coach through the court system and SW is working on potential for PHP/IOP once pt? has established health insurance.? ACS team to work with [facility] to coordinate discharge referrals and will continue to follow.? TW is? available for ongoing support and resources as needed.?
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
[2024-12-27 20:00] VITALS: BP 93/54; PULSE 86; RESP 20; TEMP 37.5; O2SAT 98
[2024-12-27 21:08] VITALS: BP 93/54
[2024-12-28 08:00] VITALS: BP 100/61; PULSE 71; RESP 18; TEMP 36.2; O2SAT 99
[2024-12-28] MEDS: Nicotine 14 MG PATCH.TD24 TRANSDERMA (08:35)
--- NOTE | 2024-12-28 14:23 | HO.ADDICTCON ---
History of Present Illness Date of Service: 12/28/2024 Chief Complaint: vague si depression Sources of Information: patient interviewed and chart reviewed HPI Narrative: Patient is a 49 year old female admitted to unit with worsening depression and passive suicidal ideation. Consult requested as patient reporting ongoing crack cocaine use, impacting life. Patient seen by tax investigator on 12/27 and expressed interest in starting medications for cocaine use. Topomax 25mg BID started. She reported using approx 7 grams crack cocaine daily. Denies any other substance use. Patient seen this morning in follow up to that. She is laying in bed, awake, alert, engaged in interview. Constricted affect. Answered questions regarding medication, dosing, side effects and goals of treatment. Patient inquiring when dose can be increased. Advised that it can be increased over the weekend. Discussed ongoing follow up for [facility]ANG, patient agreeable to [facility] referral. Past Psychiatric History: This is her second [facility] admissions. admission was more than 10 years ago at [place] for SI/Suicide attempt. Hx of many suicide attempts via ODs. No hx of Respite or PHP. Hx of Detox x1 at [facility] in [place] Medication trials: Lamictal and [place]. Medical Evaluation Reviewed: Yes Review of Systems Constitutional: Reports as per HPI and Reports no additional constitutional complaints Diagnostics Vital Signs (24Hr): Vital Signs - 24 hr 12/27/24 15:13 12/27/24 20:00 12/27/24 21:08 Temperature 99.5 F Pulse Rate 86 Respiratory Rate 20 Blood Pressure 100/60 93/54 L 93/54 L Pulse Oximetry 98 Oxygen Delivery Method Room Air 12/28/24 08:00 Temperature 97.2 F Pulse Rate 71 Respiratory Rate 18 Blood Pressure 100/61 Pulse Oximetry 99 Oxygen Delivery Method Room Air BMI result Body Mass Index 25.0 Labs 12/22/24 18:33 12/25/24 07:28 Imaging Radiology Impressions: ITS Impressions Chest X-Ray 12/25/24 12:55 IMPRESSION: Patchy opacity in the lingula suspicious for pneumonia. Electronically signed by: Caleb Chapman MD 12/25/2024 01:17 PM EDT RP Chest CT 12/26/24 21:00 IMPRESSION: 1. Airspace opacity in the lingula compatible with subsegmental atelectasis or possibly early pneumonia. 2. Mediastinal and bilateral hilar lymphadenopathy as described. Splenomegaly. Differential diagnostic considerations include lymphoma, sarcoidosis, metastatic disease, and atypical infection. Clinical correlation is recommended. Electronically signed by: Osvaldo Akhtar MD 12/27/2024 07:51 AM EDT RP Mental Status Exam Mental Status Exam Level of Consciousness: Awake and Alert Patient Behavior: Appropriate, Cooperative and Passive Affect Description: Blunted Speech Pattern: Clear Thought Process: Intact Thought Content: positive for Intact Judgement: Good Medications Medications Current Medications Acetaminophen (Acetaminophen 325 Mg Tablet) 650 mg PO Q6H PRN PRN Reason: Headache/Pain, Scale 1-10 Last Admin: 12/26/24 21:33 Dose: 650 mg Al Hydroxide/Mg Hydroxide (Magnesium Hydrox/Alum Hydrox 30 Ml Oral.Susp) 30 ml PO Q6H PRN PRN Reason: Heartburn/Nausea Clonidine HCl (Clonidine Hcl 0.1 Mg Tablet) 0.1 mg PO TID PRN; Protocol PRN Reason: anxiety/W/D symtoms Last Admin: 12/25/24 11:25 Dose: 0.1 mg Clonidine HCl (Clonidine Hcl 0.1 Mg Tablet) 0.1 mg PO DAILY@0900,1500 [facility]; Protocol Last Admin: 12/28/24 08:41 Dose: 0.1 mg Doxycycline Monohydrate (Doxycycline Monohydrate 100 Mg Capsule) 100 mg PO BID [facility] Stop: 12/31/24 12:59 Last Admin: 12/28/24 08:36 Dose: 100 mg Hydroxyzine HCl (Hydroxyzine Hcl 50 Mg Tablet) 50 mg PO Q6H PRN PRN Reason: mild anxiety Last Admin: 12/28/24 10:33 Dose: 50 mg [place] Carbonate ([place] Carbonate Er 300 Mg Tablet.Er) 600 mg PO BEDTIME [facility] Last Admin: 12/27/24 21:08 Dose: 600 mg Lorazepam (Lorazepam 0.5 Mg Tablet) 0.5 mg PO Q8H PRN PRN Reason: severe anxiety Last Admin: 12/28/24 10:34 Dose: 0.5 mg Magnesium Hydroxide (Milk Of Magnesia 30 Ml Oral.Susp) 30 ml PO DAILY PRN PRN Reason: Constipation Nicotine (Nicotine 14 Mg Patch.Td24) 14 mg TRANSDERMA DAILY [facility] Last Admin: 12/28/24 08:35 Dose: 14 mg Nicotine Polacrilex (Nicotine Polacrilex 2 Mg Gum) 2 mg BUCCAL Q2H PRN PRN Reason: Nicotine Cravings Olanzapine (Olanzapine 5 Mg Tablet) 5 mg PO Q4H PRN PRN Reason: severe anxiety/agitation Last Admin: 12/26/24 08:37 Dose: 5 mg Prazosin HCl (Prazosin Hcl 1 Mg Capsule) 1 mg PO BEDTIME [facility]; Protocol Last Admin: 12/27/24 21:08 Dose: 1 mg Quetiapine Fumarate (Quetiapine Fumarate 50 Mg Tablet) 50 mg PO BEDTIME PRN PRN Reason: sleep, anxiety Quetiapine Fumarate (Quetiapine Fumarate 25 Mg Tablet) 25 mg PO BID PRN PRN Reason: anxiety Last Admin: 12/28/24 12:04 Dose: 25 mg Topiramate (Topiramate 25 Mg Tablet) 25 mg PO BID [facility] Last Admin: 12/28/24 08:36 Dose: 25 mg Trazodone HCl (Trazodone Hcl 50 Mg Tablet) 50 mg PO BEDTIME PRN PRN Reason: Insomnia Trazodone HCl (Trazodone Hcl 50 Mg Tablet) 50 mg PO BEDTIME [facility] Last Admin: 12/27/24 21:09 Dose: 50 mg Allergies Allergies Allergy/AdvReac Type Severity Reaction Status Date / Time No Known Allergies Allergy Verified 12/22/24 17:49 Assessment & Plan Assessment & Plan (1) Cocaine use disorder: Status: Acute Code(s): F14.10 - Cocaine abuse, uncomplicated Assessment and Plan: Continue topomax 25mg BID, if still tolerated by patient, can increase dose to 50mg BID on Wednesday. Would like referral to [facility] to continue treatment for StUD. encourage hydration and nutrition Total time managing care of this patient today __25__ minutes. [facility] Social History Social History Household Members: Other Housing: Homeless Housing Other:: can stay w/ daughter short-term Do you presently have visiting nurse or other home services: No Patient Tobacco Use Status: Former Tobacco user e-Cigarette/Vaping Use: Currently Using Frequency of e-Cigarette/Vaping Use: Vapes nicotine daily Patient Interested in Nicotine Replacement: Yes Patient Given Instructions on How to Stop Smoking: No Second Hand Smoke Exposure: No Currently Displaying Signs/Symptoms of Drug Intoxication Withdrawal: No Have you been hit, kicked, punched, or otherwise hurt by someone within the past year? If so, by whom?: No Do you feel safe in your current relationship?: No Current Relationship Is there a partner from a previous relationship who is making you feel unsafe now?: No Are you made to feel afraid or neglected: No Advance Directives: No Advance Directives Information Provided: No Do you have thoughts of harming others: None Do you have a plan to hurt others: No Plan Recently lost weight without trying: No Eating poorly because of decreased appetite: No Nutrition Risks: No Nutritional Risk Patient : No : No Poor oral hygiene: No service: No Sexual orientation: Straight/Heterosexual
[2024-12-28 15:50] VITALS: BP 94/53; PULSE 88; RESP 18
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
[2024-12-28 20:00] VITALS: BP 91/55; PULSE 91; RESP 18; TEMP 36.1; O2SAT 98
[2024-12-28 21:42] VITALS: BP 91/55
[2024-12-29 07:53] VITALS: PULSE 79; TEMP 36.3; O2SAT 96
--- NOTE | 2024-12-29 08:30 | HO.PM.IMPN ---
Subjective Subjective Date of Service: 12/29/24 Interval History: Follow up abnormal CT scan. Patient reports that she does not have any shortness of breath or chest pain. She continues on antibiotic therapy. CT scan demonstrated mediastinal and bilateral hilar lymphadenopathy.. CT scan also demonstrates an enlarged spleen. Patient reports that she has had biopsies 4 years ago. Attempting to get the record from [facility], per business unit controller reportedly patient was under a different name at a time complicating obtaining records. She feels better, she reports she has been going out into the kitchen more often and in the milieu. Review of Systems Denies any shortness of breath, chest pain, palpitations, dizziness, lightheadedness, headaches, dysuria, abdominal pain or discomfort, nausea, vomiting or diarrhea. Denies Chills, body aches, muscle aches, fatigue or weight loss. Physical Exam Exam: Exam: CONST: Alert and oriented, in NAD. Well nourished HEENT: Normocephalic, atraumatic, MMM, Eyes clear, Neck supple RESP: Lungs clear, RRR even and regular HEART:,RRR, S1, S2. No edema GI:Abdomen Soft NT, ND. + BS times four :Deferred SKIN: Warm dry and intact, no visible lesions or rashes NEURO:CN II-XII Intact bilaterally, Sensation intact. Speech clear PSYCH: Normal affect Vital Signs: Vital Signs: Last Vital Signs Temp 97.4 F 12/29/24 07:53 Pulse 79 12/29/24 07:53 Resp 18 12/28/24 20:00 BP 91/55 L 12/28/24 21:42 Pulse Ox 96 12/29/24 07:53 O2 Del Method Room Air 12/29/24 07:53 BMI result Body Mass Index 25.0 Objective Data Active Medications Acetaminophen (Acetaminophen 325 Mg Tablet) 650 mg PO Q6H PRN PRN Reason: Headache/Pain, Scale 1-10 Last Admin: 12/26/24 21:33 Dose: 650 mg Documented By: ROMANA Al Hydroxide/Mg Hydroxide (Magnesium Hydrox/Alum Hydrox 30 Ml Oral.Susp) 30 ml PO Q6H PRN PRN Reason: Heartburn/Nausea Buspirone HCl (Buspirone Hcl 10 Mg Tablet) 10 mg PO BID [facility] Last Admin: 12/28/24 21:43 Dose: 10 mg Documented By: DENNIS Clonidine HCl (Clonidine Hcl 0.1 Mg Tablet) 0.1 mg PO DAILY@0900,1500 [facility]; Protocol Last Admin: 12/28/24 15:58 Dose: Not Given Documented By: CHATO Non-Admin Reason: Physician Held Med Doxycycline Monohydrate (Doxycycline Monohydrate 100 Mg Capsule) 100 mg PO BID [facility] Stop: 12/31/24 12:59 Last Admin: 12/28/24 21:43 Dose: 100 mg Documented By: DENNIS Hydroxyzine HCl (Hydroxyzine Hcl 50 Mg Tablet) 50 mg PO Q6H PRN PRN Reason: mild anxiety Last Admin: 12/28/24 10:33 Dose: 50 mg Documented By: CHATO Paa-Ko Carbonate (Paa-Ko Carbonate Er 300 Mg Tablet.Er) 600 mg PO BEDTIME [facility] Last Admin: 12/28/24 21:42 Dose: 600 mg Documented By: DENNIS Lorazepam (Lorazepam 0.5 Mg Tablet) 0.5 mg PO Q8H PRN PRN Reason: severe anxiety Last Admin: 12/28/24 10:34 Dose: 0.5 mg Documented By: CHATO Magnesium Hydroxide (Milk Of Magnesia 30 Ml Oral.Susp) 30 ml PO DAILY PRN PRN Reason: Constipation Nicotine (Nicotine 14 Mg Patch.Td24) 14 mg TRANSDERMA DAILY [facility] Last Admin: 12/28/24 08:35 Dose: 14 mg Documented By: CHATO Nicotine Polacrilex (Nicotine Polacrilex 2 Mg Gum) 2 mg BUCCAL Q2H PRN PRN Reason: Nicotine Cravings Olanzapine (Olanzapine 5 Mg Tablet) 5 mg PO Q4H PRN PRN Reason: severe anxiety/agitation Last Admin: 12/28/24 16:13 Dose: 5 mg Documented By: CHATO Prazosin HCl (Prazosin Hcl 1 Mg Capsule) 1 mg PO BEDTIME [facility]; Protocol Last Admin: 12/28/24 21:42 Dose: 1 mg Documented By: DENNIS Quetiapine Fumarate (Quetiapine Fumarate 50 Mg Tablet) 50 mg PO BEDTIME PRN PRN Reason: sleep, anxiety Last Admin: 12/29/24 03:49 Dose: 50 mg Documented By: YURIY Quetiapine Fumarate (Quetiapine Fumarate 25 Mg Tablet) 25 mg PO BID PRN PRN Reason: anxiety Last Admin: 12/28/24 17:29 Dose: 25 mg Documented By: PRISCILA Topiramate (Topiramate 25 Mg Tablet) 25 mg PO BID [facility] Last Admin: 12/28/24 21:43 Dose: 25 mg Documented By: DENNIS Trazodone HCl (Trazodone Hcl 50 Mg Tablet) 50 mg PO BEDTIME PRN PRN Reason: Insomnia Trazodone HCl (Trazodone Hcl 50 Mg Tablet) 50 mg PO BEDTIME [facility] Last Admin: 12/28/24 21:43 Dose: 50 mg Documented By: DENNIS Labs 12/22/24 18:33 12/25/24 07:28 Assessment and Plan (1) PNA (pneumonia): Status: Acute (2) Abnormal chest CT: Status: Acute Plan 49 year old female with PMH of crack cocaine use, PTSD, Bipolar DO and depression presented to ED with Passive SI and help with abstaining from crack cocaine use. She is admitted to inpatient psych for stabilization. Substance use/depression/suicide ideation Treatment per psychiatric team Patient will need follow up as an outpatient for chronic health conditions PNA/abnormal chest x-ray. Patient with a chest x-ray with patchy opacity in the lingula suspicious for pneumonia, she reported a history of a lung issue which she needed follow up 1-1/[address] chest demonstrates mediastinal and bilateral hilar lymphadenopathy as well as splenomegaly. Pulmonology consult Continue antibiotics, we will add doxy as patient is already on a cephalosporin. Repeat Chest Xray in 6 weeks Will need outpatient pulmonology FU. Patient will also need follow up with the primary care regarding incidental finding of splenomegaly Thank you for allowing me to participate in the care of this patient. Will follow as needed, please notify medical provider with any changes in condition or concerns. Quality Stroke Does the patient have a stroke diagnosis?: No VTE Prior VTE?: No VTE Risk Level:: Medical - low VTE Device Contraindication: Treatment Not Indicated VTE Drug Contraindication: Treatment Not Indicated
[2024-12-29] MEDS: Nicotine 14 MG PATCH.TD24 TRANSDERMA (09:20)
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
--- NOTE | 2024-12-29 16:08 | PM.CNPUL ---
History of Present Illness History of Present Illness Consult date: 12/29/24 Chief complaint: vague si depression Narrative: This is an inpatient pulmonary consultation. The pt is a 49 year old female with PMH of Cocaine/Crack use, depression presented to ED with passive SI and hopelessness. CBC without leukocytosis, anemia. CMP with no electrolyte imbalances, mild elevation in AST/ALT. No evidence of renal injury. HgA1c 5.9. Patient UA+ was started on Ceftin. No home meds, No PMH. Patient reports a history of an an known thyroid problem as well as an unknown heart or lung problem which was noted approximately 2 years ago in [place], she does not know any details of this. Has not seen a PCP, will need PCP follow up on discharge. TSH WNL. No palpable masses in thyroid, no difficulty swallowing or voice changes. The patient does have a chest x-ray which was personally by me demonstrating pronounced hilum suggesting lymphadenopathy and also hazy opacity. Therefore she did undergo a CT scan of the chest which was personally by me demonstrating significant both bulky mediastinal hilar lymphadenopathy and some areas of atelectasis suggesting of the opacity with that was noted on x-ray. The patient apparently did have a biopsy in the past. The diagnosis of sarcoid seems familiar to her. Will go ahead and request medical records from the hospital where she had her procedure and biopsy sometime ago. For now clinically the patient is doing well she is going to complete a course of antibiotics and will need outpatient pulmonary follow-up. Review of Systems Review of Systems: Constitutional: Denies fatigue and Denies fever(s) Cardiovascular: Denies chest pain and Denies dyspnea Respiratory: Denies dyspnea Gastrointestinal: Denies abdominal pain Psychiatric: denies suicidal ideation Endocrine: Denies fatigue Yes all other systems are reviewed and are negative [facility] Past Medical History Medical History (Updated 12/29/24 @ 16:11 by Hiar Green MD) Atelectasis Lymphadenopathy, mediastinal Social History Social History Household Members: Other Housing: Homeless Housing Other:: can stay w/ daughter short-term Do you presently have visiting nurse or other home services: No Patient Tobacco Use Status: Former Tobacco user e-Cigarette/Vaping Use: Currently Using Frequency of e-Cigarette/Vaping Use: Vapes nicotine daily Patient Interested in Nicotine Replacement: Yes Patient Given Instructions on How to Stop Smoking: No Second Hand Smoke Exposure: No Currently Displaying Signs/Symptoms of Drug Intoxication Withdrawal: No Have you been hit, kicked, punched, or otherwise hurt by someone within the past year? If so, by whom?: No Do you feel safe in your current relationship?: No Current Relationship Is there a partner from a previous relationship who is making you feel unsafe now?: No Are you made to feel afraid or neglected: No Advance Directives: No Advance Directives Information Provided: No Do you have thoughts of harming others: None Do you have a plan to hurt others: No Plan Recently lost weight without trying: No Eating poorly because of decreased appetite: No Nutrition Risks: No Nutritional Risk Patient : No : No Poor oral hygiene: No service: No Sexual orientation: Straight/Heterosexual Meds Allergies Allergy/AdvReac Type Severity Reaction Status Date / Time No Known Allergies Allergy Verified 12/22/24 17:49 Active Medications: Current Medications Acetaminophen (Acetaminophen 325 Mg Tablet) 650 mg PO Q6H PRN PRN Reason: Headache/Pain, Scale 1-10 Last Admin: 12/26/24 21:33 Dose: 650 mg Al Hydroxide/Mg Hydroxide (Magnesium Hydrox/Alum Hydrox 30 Ml Oral.Susp) 30 ml PO Q6H PRN PRN Reason: Heartburn/Nausea Buspirone HCl (Buspirone Hcl 10 Mg Tablet) 10 mg PO BID [facility] Last Admin: 12/29/24 09:20 Dose: 10 mg Clonidine HCl (Clonidine Hcl 0.1 Mg Tablet) 0.1 mg PO DAILY@0900,1500 [facility]; Protocol Last Admin: 12/29/24 09:54 Dose: 0.1 mg Doxycycline Monohydrate (Doxycycline Monohydrate 100 Mg Capsule) 100 mg PO BID [facility] Stop: 12/31/24 12:59 Last Admin: 12/29/24 09:20 Dose: 100 mg Hydroxyzine HCl (Hydroxyzine Hcl 50 Mg Tablet) 50 mg PO Q6H PRN PRN Reason: mild anxiety Last Admin: 12/29/24 11:12 Dose: 50 mg [place] Carbonate ([place] Carbonate Er 300 Mg Tablet.Er) 600 mg PO BEDTIME [facility] Last Admin: 12/28/24 21:42 Dose: 600 mg Lorazepam (Lorazepam 0.5 Mg Tablet) 0.5 mg PO Q8H PRN PRN Reason: severe anxiety Last Admin: 12/29/24 09:20 Dose: 0.5 mg Magnesium Hydroxide (Milk Of Magnesia 30 Ml Oral.Susp) 30 ml PO DAILY PRN PRN Reason: Constipation Nicotine (Nicotine 14 Mg Patch.Td24) 14 mg TRANSDERMA DAILY [facility] Last Admin: 12/29/24 09:20 Dose: 14 mg Nicotine Polacrilex (Nicotine Polacrilex 2 Mg Gum) 2 mg BUCCAL Q2H PRN PRN Reason: Nicotine Cravings Olanzapine (Olanzapine 5 Mg Tablet) 5 mg PO Q4H PRN PRN Reason: severe anxiety/agitation Last Admin: 12/29/24 11:12 Dose: 5 mg Olanzapine (Olanzapine 5 Mg Tablet) 5 mg PO BID [facility] Prazosin HCl (Prazosin Hcl 1 Mg Capsule) 1 mg PO BEDTIME [facility]; Protocol Last Admin: 12/28/24 21:42 Dose: 1 mg Quetiapine Fumarate (Quetiapine Fumarate 50 Mg Tablet) 50 mg PO BEDTIME PRN PRN Reason: sleep, anxiety Last Admin: 12/29/24 03:49 Dose: 50 mg Quetiapine Fumarate (Quetiapine Fumarate 25 Mg Tablet) 25 mg PO BID PRN PRN Reason: anxiety Last Admin: 12/29/24 11:12 Dose: 25 mg Topiramate (Topiramate 25 Mg Tablet) 25 mg PO BID [facility] Last Admin: 12/29/24 09:20 Dose: 25 mg Trazodone HCl (Trazodone Hcl 50 Mg Tablet) 50 mg PO BEDTIME PRN PRN Reason: Insomnia Trazodone HCl (Trazodone Hcl 50 Mg Tablet) 50 mg PO BEDTIME [facility] Last Admin: 12/28/24 21:43 Dose: 50 mg Home Medications ?Medication ?Instructions ?Recorded ?Confirmed ?Last Taken ?Type No Known Home Meds 12/22/24 12/22/24 Unknown History Physical Exam Exam: Exam: CONST: Alert and oriented, in NAD. Well nourished HEENT: Normocephalic, atraumatic, MMM, Eyes clear, Neck supple RESP: Lungs clear, RRR even and regular HEART:,RRR, S1, S2. No edema GI:Abdomen Soft NT, ND. + BS times four :Deferred SKIN: Warm dry and intact, no visible lesions or rashes NEURO:CN II-XII Intact bilaterally, Sensation intact. Speech clear PSYCH: Normal affect Vital Signs: Vital Signs: Last Vital Signs Temp 97.4 F 12/29/24 07:53 Pulse 79 12/29/24 07:53 Resp 18 12/28/24 20:00 BP 91/55 L 12/28/24 21:42 Pulse Ox 96 12/29/24 07:53 O2 Del Method Room Air 12/29/24 07:53 BMI result Body Mass Index 25.0 Results Laboratory Findings 12/22/24 18:33 12/25/24 07:28 Abnormal lab findings: Abnormal Labs 12/22/24 12/23/24 12/25/24 18:33 04:05 07:28 Immature Gran % (Auto) 0.5 H Lymph % (Auto) 19.0 L BUN 18 H 23 H AST 49 H 46 H ALT 74 H 76 H LDL Cholesterol, Calc 124 H Urine Nitrite Positive H Ur Leukocyte Esterase Moderate (2+) H Urine WBC >50 H Salicylates < 5.0 L U Benzodiazepines Scrn POSITIVE H Urine Cocaine Screen POSITIVE H Microbiology: Microbiology 12/23/24 Unknown Urine clean catch - Clean Catch Midstream Urine Culture - Final Klebsiella pneumoniae Escherichia coli Assessment and Plan (1) Lymphadenopathy, mediastinal: Status: Acute (2) Atelectasis: Status: Acute (3) PNA (pneumonia): Status: Acute Plan Complete antibiotics Requesting records from previous lung biopsy Will follow-up as an outpatient in our Pulmonary office Further recommendation based on forthcoming data Procedures Date of Service Date of Service: 12/29/24
[2024-12-29 20:00] VITALS: BP 101/59; PULSE 91; RESP 16; TEMP 36.2; O2SAT 98
[2024-12-29 20:44] VITALS: BP 101/59
[2024-12-30 08:00] VITALS: BP 125/65; PULSE 90; TEMP 35.8; O2SAT 100
[2024-12-30 08:26] LABS: Lithium 0.64 mmol/L (0.60-1.20)
[2024-12-30] MEDS: Nicotine 14 MG PATCH.TD24 TRANSDERMA (13:12)
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
[2024-12-30 19:37] VITALS: BP 102/64; PULSE 97; RESP 16; TEMP 35.7; O2SAT 97
[2024-12-31 09:20] VITALS: BP 109/75; PULSE 100; TEMP 36; O2SAT 98
[2024-12-31] MEDS: Nicotine 14 MG PATCH.TD24 TRANSDERMA (09:28)
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
[2024-12-31 19:36] VITALS: BP 117/73; PULSE 117; RESP 15; TEMP 36.5; O2SAT 96
[2025-01-01 08:00] VITALS: BP 99/55; PULSE 83; RESP 16; TEMP 36.9; O2SAT 98
[2025-01-01] MEDS: Nicotine 14 MG PATCH.TD24 TRANSDERMA (09:34)
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
[2025-01-01 19:57] VITALS: BP 122/75; PULSE 108; RESP 18; TEMP 37.1; O2SAT 98
[2025-01-02 08:00] VITALS: BP 116/76; PULSE 90; TEMP 36.1; O2SAT 98
[2025-01-02] MEDS: Nicotine 14 MG PATCH.TD24 TRANSDERMA (09:10)
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
[2025-01-02 20:00] VITALS: BP 115/79; PULSE 108; RESP 20; TEMP 36.4; O2SAT 98
[2025-01-02 21:01] VITALS: BP 115/79
[2025-01-03 07:54] VITALS: BP 90/54; PULSE 99; TEMP 36.3; O2SAT 96
[2025-01-03] MEDS: OLANZapine 7.5 MG TABLET 15 MG PO (08:54)
--- NOTE | 2025-01-03 12:02 | PM.PSYDC ---
DS: Providers Provider Date of Service: 01/03/25 Date of admission: 12/24/24 11:40 Date of discharge: 01/03/25 Primary care physician: None Physician Admitting clinician: Lindsay Hung Attending physician on admission: Gregory Haynes Consults: 12/24/24 15:46 Addiction Medicine Provider Routine Consulting Provider: Addiction Covering Reason for consultation: DAILY CRACK COCAINE USE 12/26/24 16:56 Addiction Medicine Provider Routine Consulting Provider: Addiction Covering Reason for consultation: Pt would like to discuss medications for cravings. Has provider been notified: No 12/28/24 15:39 Consult to Comprehensive Care Routine Consulting Provider: [facility] Comprehensive [facility] 12/29/24 08:31 Consult to Pulmonology Routine Consulting Provider: [facility] Pulmonology Services Reason for consultation: Abnormal chest CT Attending physician on discharge: Gregory Haynes Discharging clinician: Nani Duval DS: Diagnosis Discharge Diagnosis (1) Bipolar II disorder: Status: Acute (2) PTSD (post-traumatic stress disorder): Status: Acute (3) Cocaine abuse: Status: Acute DS: Medications Discharge Medications Home Medications: Previous Rx's ?Medication ?Instructions ?Recorded acetaminophen 325 mg tablet 650 mg (2 x 325 mg) PO Q6H PRN 01/02/25 Headache/Pain, Scale 1-10 #0 tabs buspirone 10 mg tablet 10 mg PO TID #90 tabs 01/02/25 hydroxyzine HCl 50 mg tablet 50 mg PO Q6H PRN mild anxiety #60 01/02/25 tabs lithium carbonate 300 mg tablet 150 mg (1/2 x 300 mg) PO DAILY #30 01/02/25 tabs lithium carbonate 300 mg 600 mg (2 x 300 mg) PO BEDTIME #60 01/02/25 tablet,extended release tabs nicotine (polacrilex) 2 mg gum 2 mg buccal Q2H PRN Nicotine 01/02/25 Cravings #100 ea nicotine 14 mg/24 hr daily 14 mg transdermal DAILY #30 ea 01/02/25 transdermal patch olanzapine 5 mg tablet 5 mg PO BEDTIME #30 tabs 01/02/25 olanzapine 5 mg tablet 5 mg PO Q4H PRN severe 01/02/25 anxiety/agitation #30 tabs olanzapine 7.5 mg tablet 15 mg (2 x 7.5 mg) PO DAILY #60 01/02/25 tabs prazosin 1 mg capsule 1 mg PO BEDTIME #30 caps 01/02/25 quetiapine 25 mg tablet 25 mg PO BID PRN anxiety #30 tabs 01/02/25 topiramate 25 mg tablet 50 mg (2 x 25 mg) PO BID #120 tabs 01/02/25 trazodone 50 mg tablet 50 mg PO BEDTIME #30 tabs 01/02/25 Mental Status Exam Mental Status Exam Patient Appearance: Appropriate Patient Orientation: Person, Place, Time and Situation Level of Consciousness: Alert Patient Behavior: Talkative, Anxious, Avoidant, Distractible, Isolative and Good Eye Contact Mood Description: Anxious and Apprehensive Affect Description: Anxious and Apprehensive Patient Cognition Impaired: No Ability to Follow Directions: Good Speech Pattern: Spontaneous Speech Memory Description: Intact Hallucinations: None Delusions: Not Present Perceptual Disturbances: Depersonalization and Derealization Thought Process: Goal Oriented Thought Content: positive for Circumstantial, positive for Goal Oriented and positive for Suicidal Ideation (denies) Depressive Symptoms: Increased Anxiety Judgement: Good Data Data Completed and Pending Completed studies during hospitalization [Text1]: 12/30/24 07:44 [place] 0.64 12/23/24 Unknown Urine clean catch - Clean Catch Midstream Urine Culture - Final Klebsiella pneumoniae Escherichia coli Imaging Diagnostic Imaging Impressions Chest X-Ray 12/25/24 12:55 IMPRESSION: Patchy opacity in the lingula suspicious for pneumonia. Electronically signed by: Caleb Chapman MD 12/25/2024 01:[address] 12/26/24 21:00 IMPRESSION: 1. Airspace opacity in the lingula compatible with subsegmental atelectasis or possibly early pneumonia. 2. Mediastinal and bilateral hilar lymphadenopathy as described. Splenomegaly. Differential diagnostic considerations include lymphoma, sarcoidosis, metastatic disease, and atypical infection. Clinical correlation is recommended. Electronically signed by: Osvaldo Akhtar MD 12/27/2024 07:51 AM EDT RP DS: Summary Hospital Course Hospital Course: Admission to adult psychiatry for exacerbation of PTSD, Bipolar Disorder, Cocaine Use Disorder. Pt reported SI on admit. Daughter brought pt to the ER. Medically, pt reported having pulmonary and cardiac issues diagnosed in [place] in 2024 and did not have follow up with providers. She reported a recent move to [place] to live with her daughter. Hospitalist team and Pulmonology met with pt to begin to secure her out pt care locally. Medications were evaluated and adjusted. Pt was offered full milieu therapy to assist in strengthening her coping skills, however, she was not very receptive to group programs. Pt asked to leave the hospital, citing that she felt the milieu increased her anxiety. Her request was honored, however, she was asked to remain for further treatment and medication adjustments which she declined to consider. She will return to her daughters home, will follow up with out patient psychiatric, therapy, addictions and medical treatments. She is aware she may call or return at any time. Status at Discharge Functional status at discharge: independent ambulation Overall status at discharge: patient is progressing back to baseline Time Spent with Patient Time attestation: Total time managing care of this patient today ____ minutes. Time spent: Less than 30 minutes Discharge Plan Discharge Anticipated Discharge Date/Time: 01/03/25 11:00 Patient Disposition: Home, Self-Care Discharge Diagnosis: PTSD Bipolar II Disorder Cocaine Use Disorder Referrals: [facility] Care Center Intake [Other] - 01/04/25 11:00 am Referral Note: Take the elevator to the 4th floor and look for the Comprehensive Care signs. Manager Chinese:Suad Cardona ([facility]) [Other] - 1 Week Referral Note: Suad has been assigned to you as your assistant tennis coach and will be reaching out to you by phone. You may also follow up with her at the above number. [facility] [Other] - 1 Week Referral Note: Social work sent in a referral for an intake and psychiatry appointments. [facility] has not gotten back prior to Eva's discharge. Physician,None [Primary Care Provider, Medical] - 1 Week Referral Note: No PCP on file, pt encouraged to f/u after D/C. Discharge Medications: New lithium carbonate 600 mg capsule 600 mg PO BEDTIME Qty: 30 0RF lithium carbonate 150 mg capsule 150 mg PO DAILY Qty: 30 0RF olanzapine 20 mg tablet 20 mg PO BEDTIME Qty: 30 0RF prazosin 1 mg capsule 1 mg PO BEDTIME Qty: 30 0RF topiramate [Topamax] 50 mg tablet 50 mg PO BID Qty: 60 0RF trazodone 50 mg tablet 50 mg PO BEDTIME PRN (Reason: insomnia) Qty: 30 0RF Discharge Orders: Discharge Order (Routine); Ordered 01/03/25 Ordered By: Nani Duval Diet: Advance to usual diet Activity on Discharge: As tolerated Stand Alone Forms: Patient Portal Discharge page, Community Support Print Language: Nigerien Care Plan Goals: Abstain from substance use Mood and Behavioral Stabilization Health Concerns: Abstain from substance use Mood and Behavioral Stabilization Plan of Treatment: Attend scheduled appointments Take medications as directed Pt and family called after discharge to report pt has no insurance for medicines. As a result, regime was decreased and pharmacy changed to [facility] Buspirone-discontinued Hydroxyzine-discontinued [place] 600 mg HS $12.46 [place] 150 mg AM $4.59 Olanzapine 20 mg HS $130 Prazosin 1 mg HS $13.73 Topiramate 50 mg bid $9.0 Trazodone 50 mg HS $9.0 Pt will call should further changes need to be made. Assessment: Denies SI,HI,AH,VH No sx of acute prashanth or psychosis Pt agrees with plan of care Patient Instructions: Cocaine Use Disorder (ED), Depression (ED) Discharge Date/Time: 01/03/25 11:20
== END 2025-01-03 11:20 | disposition home or self-care (01) | DRG 885 ==
LOC: HO.ED 21:43 → HO.PM5 12-24 11:48
PROVIDERS: Nurse Practitioner Family; Nurse Practitioner Psychiatric/Mental Health; Physician Assistant; Admitting Provider Psychiatry & Neurology Psychiatry; Emergency Provider Emergency Medicine Emergency Medical Services; Visit Provider Clinical Nurse Specialist Psychiatric/Mental Health, Adult
DX: F31.81 Bipolar II disorder (principal); J18.9 Pneumonia, unspecified organism; Z59.02 Unsheltered homelessness; R45.851 Suicidal ideations; J98.11 Atelectasis; Z91.51 Personal history of suicidal behavior; R59.0 Localized enlarged lymph nodes; R16.1 Splenomegaly, not elsewhere classified; F14.10 Cocaine abuse, uncomplicated; Z87.891 Personal history of nicotine dependence; F43.10 Post-traumatic stress disorder, unspecified; Z79.899 Other long term (current) drug therapy
CPT/HCPCS: 36415; 71046; 71250; 80053; 80061; 80143; 80178; 80179; 80307; 81001; 81025; 83036; 84443; 85025; 87086; 87088; 87186; 93005; 99285; S9485

== ENCOUNTER → 2024-12-24 09:53 | Outpatient (BNV) | payer SELFPAY | PROVIDERS: Admitting Provider Psychiatry & Neurology Psychiatry; Emergency Provider Emergency Medicine Emergency Medical Services; Visit Provider Internal Medicine Cardiovascular Disease | DX: R00.0 Tachycardia, unspecified (principal) | CPT/HCPCS: 93010 ==

== ENCOUNTER 2024-12-24 11:40 | Outpatient (BNV) | payer SELFPAY | END 2024-12-25 12:55 | PROVIDERS: Admitting Provider Psychiatry & Neurology Psychiatry; Emergency Provider Emergency Medicine Emergency Medical Services; Visit Provider Radiology Diagnostic Radiology | DX: R91.8 Other nonspecific abnormal finding of lung field (principal) | CPT/HCPCS: 71046 ==

== ENCOUNTER 2024-12-24 11:40 | Outpatient (BNV) | payer MEDICARE, SELFPAY | END 2024-12-26 21:00 | PROVIDERS: Admitting Provider Psychiatry & Neurology Psychiatry; Emergency Provider Emergency Medicine Emergency Medical Services; Visit Provider Radiology Diagnostic Radiology | DX: R91.8 Other nonspecific abnormal finding of lung field (principal); R59.0 Localized enlarged lymph nodes; R16.1 Splenomegaly, not elsewhere classified | CPT/HCPCS: 71250 ==

== ENCOUNTER → 2024-12-24 11:40 | Outpatient (BNV) | payer SELFPAY | PROVIDERS: Admitting Provider Psychiatry & Neurology Psychiatry; Emergency Provider Emergency Medicine Emergency Medical Services; Visit Provider Nurse Practitioner Family | DX: J18.9 Pneumonia, unspecified organism (principal) | CPT/HCPCS: 99221; 99231; 99232 ==

== ENCOUNTER → 2024-12-24 11:40 | Outpatient (BNV) | payer MEDICARE, SELFPAY | PROVIDERS: Admitting Provider Psychiatry & Neurology Psychiatry; Emergency Provider Emergency Medicine Emergency Medical Services; Visit Provider Hospitalist | DX: R59.0 Localized enlarged lymph nodes (principal); J98.11 Atelectasis; J18.9 Pneumonia, unspecified organism | CPT/HCPCS: 99223 ==

== ENCOUNTER → 2024-12-24 11:40 | Outpatient (BNV) | payer MEDICARE, SELFPAY | PROVIDERS: Admitting Provider Psychiatry & Neurology Psychiatry; Emergency Provider Emergency Medicine Emergency Medical Services; Visit Provider Nurse Practitioner Psychiatric/Mental Health | DX: F31.81 Bipolar II disorder (principal); F14.10 Cocaine abuse, uncomplicated; F43.11 Post-traumatic stress disorder, acute; J18.9 Pneumonia, unspecified organism; R93.89 Abnormal findings on diagnostic imaging of other specified body structures; R59.0 Localized enlarged lymph nodes; J98.11 Atelectasis | CPT/HCPCS: 90792; 99232; 99499 ==

== ENCOUNTER 2025-01-04 11:02 | Outpatient (AMB) | payer MEDICARE, SELFPAY ==
[2025-01-04 11:12] VITALS: BP 116/70; PULSE 118; O2SAT 98
--- NOTE | 2025-01-04 11:12 | MHC.OFFVIS ---
Vital Signs 01/04/25 11:12 BP 116/70 Pulse 118 H Pulse Oximetry (%) 98 Intake Visit Reasons: MAT Intake Allergies No Known Allergies Allergy (Verified 01/04/25 11:13) HPI Comments Details: A 49-year-old female presents with daughter and minor grandson for a MAT intake for a stimulant use disorder. T/w explained due to the intake process for MAT which includes discussing sensitive information it is not appropriate to have a minor child in the room listening to the conversation. The daughter declined to step into waiting room with minor child, therefore a limited intake was conducted not addressing substances by name or other sensitive conversation topics. The patient reports since hospital discharge on January 03 she did use cocaine (patient referred to substance as I did take it again due to minor child in room. ) Daughter reports an insurance issue and patient has no medication coverage until January 27. They were able to pay for 5 medications, 1 of which includes topiramate 50 mg twice per day as prescribed by inpatient provider. Reports a referral was sent to [facility] for mental health services. [facility] Medical History (Updated 12/29/24 @ 16:11 by Hair Green MD) Atelectasis Lymphadenopathy, mediastinal Social History Household Members: Other Housing: Homeless Housing Other:: can stay w/ daughter short-term Do you presently have visiting nurse or other home services: No Patient Tobacco Use Status: Former Tobacco user e-Cigarette/Vaping Use: Currently Using Second Hand Smoke Exposure: No service: No Sexual orientation: Straight/Heterosexual Review of Systems Const All systems reviewed & are unremarkable except as noted in HPI and below Physical Exam Vital Signs: Last Vital Signs Pulse 118 H 01/04/25 11:12 BP 116/70 01/04/25 11:12 Pulse Ox 98 01/04/25 11:12 Const General: cooperative Psych Appearance: well kempt Mental Status: mental status grossly normal Speech and movement: Normal speech and movement present Affect: Anxious affect present Attitude: cooperative Thought process: Normal thought process present Thought content: Normal thought content present Insight: Fair insight present (Psych) Judgement: Fair judgement present (Psych) Results AMB 14 Panel Urine Drug Screen Urine Marijuana (THC) Negative Last Edit by Aleisha Rodriges CMA on 01/04/25 12:54 Urine Cocaine Positive Last Edit by Aleisha Rodriges, SIX [employer] BLACK BELT ENGINEER on 01/04/25 12:54 Urine Morphine Negative Last Edit by Aleisha Rodriges, SIX [employer] BL[employer] BELT ENGINEER on 01/04/25 12:54 Urine Methamphetamine Negative Last Edit by Aleisha Rodriges, SIX [employer]T ENGINEER on 01/04/25 12:54 Urine Amphetamine Negative Last Edit by Aleisha Rodriges, SIX [employer] BELT ENGINEER on 01/04/25 12:54 Urine Benzodiazepine Positive Last Edit by Aleisha Rodriges, SIX [employer]T ENGINEER on 01/04/25 12:54 Urine Barbiturates Negative Last Edit by Aleisha Rodriges, SIX [employer] BL[employer] BELT ENGINEER on 01/04/25 12:54 Urine Methadone Negative Last Edit by Aleisha Rodriges, SIX [employer] BL[employer] BELT ENGINEER on 01/04/25 12:54 Urine Buprenorphine Negative Last Edit by Aleisha Rodriges, SIX [employer] BL[employer] BELT ENGINEER on 01/04/25 12:54 Urine Tricyclic Antidepressant Last Edit by Aleisha Rodriges, SIX [employer]T ENGINEER on 01/04/25 12:54 Urine MDMA Negative Last Edit by Aleisha Rodriges, SIX [employer]MA BL[employer] BELT ENGINEER on 01/04/25 12:54 Urine Oxycodone Negative Last Edit by Aleisha Rodriges, SIX [employer]T ENGINEER on 01/04/25 12:54 Urine Phencyclidine Negative Last Edit by Aleisha Rodriges, SIX [employer]T ENGINEER on 01/04/25 12:54 Urine Propoxyphene Negative Last Edit by Aleisha Rodriges, SIX [employer]T ENGINEER on 01/04/25 12:54 Results Reviewed Results Reviewed: Laboratory Last Values POC Urine Buprenorphine Negative 01/04/25 11:13 POC Urine Morphine Negative 01/04/25 11:13 POC Urine Oxycodone Negative 01/04/25 11:13 POC Urine Methadone Negative 01/04/25 11:13 POC Urine Propoxyphene Negative 01/04/25 11:13 POC Urine Barbiturates Negative 01/04/25 11:13 POC Urine PCP Negative 01/04/25 11:13 POC Ur Amphetamines Negative 01/04/25 11:13 POC Ur Methamphetamine Negative 01/04/25 11:13 POC Urine MDMA Negative 01/04/25 11:13 POC Ur Benzodiazepine Positive 01/04/25 11:13 POC Urine Cocaine Positive 01/04/25 11:13 POC Ur Marijuana (THC) Negative 01/04/25 11:13 Assessment & Plan Assessment & Plan (1) Cocaine use disorder: Code(s): F14.10 - Cocaine abuse, uncomplicated Category: Medical Plan The plan is to continue on topiramate 50 mg BID as prescribed by inpatient provider. Education and brochures for [facility] treatment program for stimulants use disorder provided (communicated information in a sensitive manner not adressing susbtances by name due to minor child present). Follow-up in 1 month or sooner if needed. Orders: Orders AMB 14 Panel Urine Drug Screen Today Z51.81 - Encounter for therapeutic drug level monitoring Patient Instructions: - Continue on topiramate as prescribed. - Follow up with [facility] for mental health services. - Follow up in 1 month or sooner if needed. - Call with questions, concerns, or to report side effects/new onset of symptoms to [facility]. - The patient verbalized understanding and agreed with plan of care. Coding Level of Care Code New Pt Level 3 (86554) Diagnoses Cocaine use disorder F14.10
== END 2025-01-04 11:41 | disposition home or self-care (01) ==
PROVIDERS: Visit Provider Clinical Nurse Specialist Psychiatric/Mental Health
DX: Z51.81 Encounter for therapeutic drug level monitoring (principal); F14.10 Cocaine abuse, uncomplicated
CPT/HCPCS: 99203

== ENCOUNTER → 2025-01-04 11:02 | Outpatient (BNVA) | payer MEDICARE, SELFPAY | PROVIDERS: Visit Provider Clinical Nurse Specialist Psychiatric/Mental Health | DX: F14.10 Cocaine abuse, uncomplicated (principal); Z87.891 Personal history of nicotine dependence | CPT/HCPCS: 80307; 99202 ==